=== PATIENT | male | born 2000 | race Caucasian/White ===

== ENCOUNTER 2024-11-09 21:14 | Emergency (ER) | payer OTHER ==
[~2024-11-09] VITALS: Ht 180.3 cm; Wt 108.9 kg
[2024-11-09] MEDS ORDERED: AMOX-430 PO (21:57)
[2024-11-09] MEDS ORDERED: TDAP [DIPH/PERTUSSIS/TET] 0.5 ML VIAL IM ONE (21:59)
[2024-11-09] MEDS: TDAP [DIPH/PERTUSSIS/TET] 0.5 ML VIAL IM ONE (22:00)
[2024-11-09 22:11] VITALS: BP 136/75; TEMP 98; O2SAT 99
== END 2024-11-09 22:13 | disposition home or self-care (01) ==
LOC: ER 21:21
DX: S41.131A Puncture wound without foreign body of right upper arm, initial encounter (principal); Y04.1XXA Assault by human bite, initial encounter; Y93.89 Activity, other specified; Y92.89 Other specified places as the place of occurrence of the external cause; Y99.8 Other external cause status
CPT/HCPCS: 90715